=== PATIENT | female | born 1940 | race African-American/Black ===

== ENCOUNTER 2019-07-05 14:07 | Emergency (ER) | payer MEDICARE, SELFPAY ==
--- NOTE | ~2019-07-05 | XR_ITS ---
XR mandible min 4V 07/05/2019 15:03 Indication: Mandibular pain Procedure: 4 views mandible Comparison: No prior studies for comparison. Findings: No fracture, subluxation or dislocation. Temporomandibular joints are symmetric. Zygomatic arch is intact. There is moderate-severe cervical spondylosis. Impression: 1: No acute abnormality of the mandible. Reviewed, dictated and finalized at location A. R/[employer] Impression: 1: No acute abnormality of the mandible.
[2019-07-05 14:08] VITALS: BP 112/72; PULSE 66; RESP 18; TEMP 37; O2SAT 100
--- NOTE | 2019-07-05 14:42 | ED.GENADULT ---
HPI - General Adult General Chief complaint: Dental/Oral <REGGIE Nicolas Last Filed: 07/05/19 15:11> Stated complaint: dislocated jaw <REGGIE Nicolas Last Filed: 07/05/19 15:11> Time Seen by Provider: 07/05/19 14:29 <REGGIE Nicolas Last Filed: 07/05/19 15:11> Source: patient <REGGIE Nicolas Last Filed: 07/05/19 15:11> Mode of arrival: ambulatory <REGGIE Nicolas Last Filed: 07/05/19 15:11> Limitations: no limitations <REGGIE Nicolas Last Filed: 07/05/19 15:11> History of Present Illness HPI narrative: Patient is a 78-year-old female who presents to emergency department for possible jaw dislocation noting that she has been brushing her teeth and then developed some pain and deformity of the jaw had dental procedures with teeth extraction earlier in the month presents by EMS in no distress and on arrival is noting minimal discomfort or pain and denies any other URI symptoms or difficulty swallowing or breathing <REGGIE Nicolas Last Filed: 07/05/19 15:11> Related Data Home medications: Home Medications Medication Instructions Recorded Confirmed cetirizine 5 mg PO DAILY PRN 07/05/19 clopidogrel 75 mg PO DAILY 07/05/19 ibuprofen 600 mg PO Q6H PRN 07/05/19 lisinopril 10 mg PO DAILY 07/05/19 multivitamin [Daily-Suzy] 1 tablet PO DAILY 07/05/19 oxybutynin chloride 15 mg PO DAILY 07/05/19 simvastatin 20 mg PO HS 07/05/19 <REGGIE Nicolas Last Filed: 07/05/19 15:11> Allergies/adverse reactions: Allergies Allergy/AdvReac Type Severity Reaction Status Date / Time No Known Allergies Allergy Verified 07/05/19 14:11 <REGGIE Nicolas Last Filed: 07/05/19 15:11> Review of Systems Review of Systems: All systems reviewed & are unremarkable except as noted in HPI and below <REGGIE Nicolas Last Filed: 07/05/19 15:11> PMFSH Surgical History Surgical History: Surgical History H/O tooth extraction <Paul Cardona PA-C - Last Filed: 07/05/19 15:11> Social History Social History: Social History Gender identity (if verbalized by the patient): Female <Paul Cardona PA-C - Last Filed: 07/05/19 15:11> Exam Narrative: Exam Narrative: GENERAL: Well-appearing, well-nourished, and in no acute distress. HEAD: Normocephalic, atraumatic. Tenderness of the bilateral TMJ with mandible shifted to the right EYES: PERRLA and EOMI. ENT: Nares clear, no rhinorrhea or epistaxis. Mucous membranes moist. Oropharynx without tonsillar hypertrophy exudate or other lesions. Uvula midline no trismus or drooling NECK: Supple. No adenopathy or masses. CHEST: Clear to auscultation. No respiratory distress. No wheezes rales or rhonchi HEART: Regular rate and rhythm. No murmur heard. EXTREMITIES: Normal range of motion. No edema. SKIN: Warm, dry, no rash. NEURO: No focal deficits. Alert and oriented x3. PSYCH: Normal mood and affect. <Paul Cardona PA-C - Last Filed: 07/05/19 15:11> Course Vital Signs Vital signs: Vital Signs Temperature 98.6 F 07/05/19 14:08 Pulse Rate 66 07/05/19 14:08 Respiratory Rate 18 07/05/19 14:08 Blood Pressure 112/72 07/05/19 14:08 Pulse Oximetry 100 07/05/19 14:08 Temperature 98.6 F 07/05/19 14:08 Pulse Rate 66 07/05/19 14:08 Respiratory Rate 18 07/05/19 14:08 Blood Pressure 112/72 07/05/19 14:08 Pulse Oximetry 100 07/05/19 14:08 <Paul Cardona PA-C - Last Filed: 07/05/19 15:11> Vital Signs Temperature 98.6 F 07/05/19 14:08 Pulse Rate 66 07/05/19 14:08 Respiratory Rate 18 07/05/19 14:08 Blood Pressure 112/72 07/05/19 14:08 Pulse Oximetry 100 07/05/19 14:08 Temperature 98.6 F 07/05/19 14:08 Pulse Rate 66 07/05/19 14:08 Respiratory Rate
[2019-07-05 15:51] VITALS: BP 139/68; PULSE 68; RESP 16; O2SAT 100
== END 2019-07-05 16:01 | disposition home or self-care (01) ==
LOC: ANHED 15:41
PROVIDERS: Emergency Provider General Practice; PCP Family Medicine
DX: S03.01XA Dislocation of jaw, right side, initial encounter (principal); X50.9XXA Other and unspecified overexertion or strenuous movements or postures, initial encounter
CPT/HCPCS: 21480; 70110; 99285

== ENCOUNTER 2020-05-05 14:03 | Emergency (ER) | payer MEDICARE, SELFPAY ==
--- NOTE | ~2020-05-05 | US_ITS ---
EXAMINATION:US venous doppler LE RT INDICATION:Right leg pain TECHNIQUE: Multiple grayscale, color flow and Doppler images of the right lower extremity deep venous systems were obtained and reviewed. COMPARISON:No prior studies for comparison. FINDINGS: The common femoral, superficial femoral and popliteal veins demonstrate normal respiratory variation, augmentation and compressibility. Color flow is also seen within the posterior tibial, pe roneal, greater saphenous and profunda veins. IMPRESSION: 1: No lower extremity deep venous thrombosis. Reviewed, dictated and finalized at location A. ICE PHYSICIAN
--- NOTE | ~2020-05-05 | CT_ITS ---
EXAMINATION: CT abdomen pelvis wo con DATE: 05/05/2020 15:27 INDICATION: Abdomen pain TECHNIQUE: Computed tomography (CT) of the abdomen and pelvis was performed without intravenous contr ast. The dose-length product was 405.10 mGy-cm. Automated exposure control and iterative reconstructi on technique were employed. COMPARISON: CT dated 09/12/2017 FINDINGS: There is right lower lobe atelectasis. Heart size is normal. There is atherosclerosis of th e aorta and coronary arteries. No evidence for aneurysm. Status post cholecystectomy with expected prominence of the bile ducts. There are calcified granuloma s in the spleen. There is a 4.5 cm left renal cyst. There are nonobstructing left renal stones. Bowel pattern is nonobstructive. Moderate colonic fecal loading. No lymphadenopathy. Generalized osteopeni a. Chronic burst fractures of L2 and L4. Moderate lumbar spondylosis. IMPRESSION: 1. No acute abdominal abnormality. 2: Nonobstructing left nephrolithiasis. Reviewed, dictated and finalized at location A. BANDING OFF BEARER
[2020-05-05 14:24] VITALS: BP 167/84; PULSE 62; RESP 16; TEMP 36.1; O2SAT 94
--- NOTE | 2020-05-05 14:28 | ED.ABDPAIN ---
HPI - Abdominal Pain General Chief Complaint: Extremity Problem,Nontraumatic Stated Complaint: leg cramps Time Seen by Provider: 05/05/20 14:19 Source: patient and family Mode of arrival: ambulatory Limitations: no limitations History of Present Illness HPI narrative: Patient is a 79-year-old female who presents to emergency department for evaluation of right leg cramping for the last week that has been intermittent typically in the mornings upon getting up also notes some mild cramping in the abdomen that radiates down into the leg patient has left-sided upper and lower deficits from prior stroke. Patient on arrival in the room in no distress denying any pain. Patient denies injury or trauma or other complaints and does not appear uncomfortable or distressed upon arrival Related Data Home Medications Medication Instructions Recorded Confirmed clopidogrel 05/05/20 05/05/20 ibuprofen 05/05/20 lisinopril 05/05/20 mirabegron [Myrbetriq] mg PO 05/05/20 omeprazole 05/05/20 oxybutynin chloride mg PO 05/05/20 simvastatin mg 05/05/20 Allergies Allergy/AdvReac Type Severity Reaction Status Date / Time No Known Allergies Allergy Verified 05/05/20 14:41 Review of Systems Review of Systems: All systems reviewed & are unremarkable except as noted in HPI and below PMFSH Social History Social History Gender identity (if verbalized by the patient): Female Course Course Emergency Course: Patient in the room in no distress aware of case findings treatment plan diagnosis Gayle catheter will be left in place for retention treated for urinary tract infection discharged back to the alf with primary care and urology follow-up has been hydrated and given antibiotics in the emergency department patient and family agree with this plan Consultations Consultation #1: Discussed case with primary care who will follow the patient in clinic or in the assisted living setting Date: 05/05/20 Time: 17:34 Vital Signs Vital signs: Vital Signs Temperature 97 F L 05/05/20 14:24 Pulse Rate 62 05/05/20 14:24 Respiratory Rate 16 05/05/20 14:24 Blood Pressure 167/84 H 05/05/20 14:24 Pulse Oximetry 94 05/05/20 14:24 Temperature 97 F L 05/05/20 14:24 Pulse Rate 74 05/05/20 16:16 Respiratory Rate 18 05/05/20 16:16 Blood Pressure 106/78 05/05/20 16:16 Pulse Oximetry 96 05/05/20 16:16 MDM - Abdominal Pain MDM Narrative Medical decision making narrative: Patient with UTI and urinary retention will be managed for these no other high risk changes in the blood work or imaging medicated in the emergency department prior to discharge Lab Data Result diagrams: 05/05/20 15:08 05/05/20 15:08 Labs: Lab Results 05/05/20 05/05/20 05/05/20 Range/Units 15:08 15:08 15:17 WBC 6.1 (4.5-10.0) K/mm3 RBC 4.16 L (4.2-5.4) M/mm3 Hgb 12.4 (12.0-15.0) g/dL Hct 37.1 (37.0-47.0) % MCV 89.2 (80-100) fl MCH 29.8 (26-34) pg MCHC 33.4 (32-36) g/dl RDW 15.0 H (11.5-14.5) % Plt Count 187 (150-375) k/mm3 MPV 9.8 (7.4-10.4) fl Immature Gran % (Auto) 0.2 (0-0.5) % Neut % (Auto) 50.3 (45.5-73.1) % Lymph % (Auto) 35.7 (18.3-44.2) % [place] % (Auto) 11.7 H (2.6-8.5) % Eos % (Auto) 1.3 (0-4.4) % Baso % (Auto) 0.8 (0.2-1.2) % Lymph # (Auto) 2.17 (0.9-3.2) K/mm3 [place] # (Auto) 0.7 H (0.1-0.6) K/mm3 Eos # (Auto) 0.1 (0-0.3) K/mm3 Baso # (Auto) 0.1 (0.0-0.1) K/mm3 Abs Immat Gran (auto) 0.01 (0.00-0.031) K/mm3 Absolute Neuts (auto) 3.1 (1.3-6.7) K/mm3 Absolute Nucleated RBC 0.0 (0.0-0.012) K/mm3 Nucleated RBC % 0.0 (0.0-0.2) % Sodium 142 (137-145) mmol/L Potassium 4.2 (3.4-5.0) mmol/L Chloride 105 (98-107) mmol/L Carbon Dioxide 29 (22-30) mmol/L Anion Gap 8 (8-16) mmol/L BUN 17 (7-17) mg/dL Creatinine 0.80 (0.7-1.0) mg/dL Estim Creat Clear Calc 4
[2020-05-05 15:19] LABS: Basophils Absolute Auto 0.1 K/mm3 (0.0-0.1); Basophils Percent Auto 0.8 % (0.2-1.2); Eosinophils Absolute Auto 0.1 K/mm3 (0-0.3); Eosinophils Percent Auto 1.3 % (0-4.4); Hematocrit 37.1 % (37.0-47.0); Hemoglobin 12.4 g/dL (12.0-15.0); Immature Granulocyte Absolute 0.01 K/mm3 (0.00-0.031); Immature Granulocyte Percent A 0.2 % (0-0.5); Lymphocytes Absolute Auto 2.17 K/mm3 (0.9-3.2); Lymphocytes Percent Auto 35.7 % (18.3-44.2); Mean Corpuscular HGB Conc 33.4 g/dl (32-36); Mean Corpuscular Hemoglobin 29.8 pg (26-34); Mean Corpuscular Volume 89.2 fl (80-100); Mean Platelet Volume 9.8 fl (7.4-10.4); Monocytes Absolute Auto 0.7 K/mm3 (0.1-0.6); Monocytes Percent Auto 11.7 % (2.6-8.5); Neutrophils Absolute Auto 3.1 K/mm3 (1.3-6.7); Neutrophils Percent Auto 50.3 % (45.5-73.1); Platelet Count Result 187 k/mm3 (150-375); Red Blood Count 4.16 M/mm3 (4.2-5.4); White Blood Count 6.1 K/mm3 (4.5-10.0)
[2020-05-05 15:27] LABS: Add Urine Microscopic? YES; Appearance Urine Clear (Clear); Bacteria Urine 1+ /hpf; Bilirubin Urine Negative (Negative); Blood Urine 1+ (Negative); Color Urine Yellow (Yellow); Glucose Urine UA Negative (Negative); Ketones Urine Negative (Negative); Leukocyte Esterase Ur 1+ LEU/UL (Negative); Mucus Urine Rare /lpf; Nitrate Urine Negative (Negative); Protein Urine Negative (Negative); RBC Urine 0-2 /hpf (0-2); Squamous Epithelial Cell Urine Rare /hpf (Few); Urobilinogen Urine Negative mg/dL (<2.0); WBC Urine 21-30 /hpf
[2020-05-05 15:31] LABS: Alanine Aminotransferase 13 U/L (4-35); Albumin Level 3.9 g/dL (3.5-5.1); Alkaline Phosphatase 102 U/L (38-126); Anion Gap 8 mmol/L (8-16); Aspartate Amino Transferase 25 U/L (14-36); Bilirubin,Total 0.6 mg/dL (0.2-1.3); Blood Urea Nitrogen 17 mg/dL (7-17); Calcium 9.2 mg/dL (8.4-10.2); Carbon Dioxide 29 mmol/L (22-30); Chloride 105 mmol/L (98-107); Estimated CRCL calculation 42 ml/min; Estimated Glomerular Filt Rate > 60; Glucose 88 mg/dL (65-105); Magnesium 2.2 mg/dL (1.6-2.3); Potassium 4.2 mmol/L (3.4-5.0); Sodium 142 mmol/L (137-145)
[2020-05-05 16:16] VITALS: BP 106/78; PULSE 74; RESP 18; O2SAT 96
[2020-05-05] MEDS: SODIUM CHLORIDE 0.9% IV 500 ML 999 ML IV CONT (16:27)
[2020-05-05 17:58] VITALS: BP 189/74; PULSE 58; RESP 16; O2SAT 95
== END 2020-05-05 18:30 ==
PROVIDERS: Emergency Medicine Emergency Medical Services; Emergency Provider Emergency Medicine; PCP Family Medicine
DX: N39.0 Urinary tract infection, site not specified (principal); R33.9 Retention of urine, unspecified; I69.354 Hemiplegia and hemiparesis following cerebral infarction affecting left non-dominant side; N20.0 Calculus of kidney; M79.604 Pain in right leg
CPT/HCPCS: 36415; 51701; 74176; 80053; 81001; 83735; 85025; 87077; 87086; 87088; 93971; 96361; 96365; 99284; J0696; J7040

== ENCOUNTER 2020-06-01 11:34 | Emergency (ER) | payer MEDICARE, SELFPAY ==
[2020-06-01] VITALS (7 sets, daily range): BP systolic 114–144; BP diastolic 72–78; PULSE 83–94; RESP 14–25; TEMP 37.8; O2SAT 75–100
--- NOTE | ~2020-06-01 | XR_ITS ---
EXAMINATION: XR hip LT 2V w AP pelvis DATE: 06/01/2020 13:00 INDICATION: Left leg weakness post fall TECHNIQUE: Anteroposterior view of the pelvis and anteroposterior and cross-table lateral views of th e left hip were obtained. COMPARISON: 06/18/2016 FINDINGS: Alignment is normal. No fracture identified. Sensitivity for nondisplaced fracture is decreased by di ffuse osteopenia which affects primarily the lower sacrum which is also partially obscured by approxi mately 9 cm ball of stool at the rectum suspicious for constipation and fecal impaction. Bilateral hi p joint spaces are relatively preserved. Atherosclerotic calcification is along the arteries in the p kathe and proximal thighs. IMPRESSION: 1. No acute osseous abnormality. Reviewed, dictated and finalized at location A. TENER
--- NOTE | ~2020-06-01 | CT_ITS ---
EXAMINATION: CT brain wo con DATE: 06/01/2020 12:50 INDICATION: Left hemiparesis. TECHNIQUE: Computed tomography (CT) of the head was performed without intravenous contrast. The mA wa s adjusted according to patient size. Iterative reconstruction technique was employed. The dose-lengt h product was 605.33 mGy-cm. COMPARISON: Head CT 04/08/2019 FINDINGS: There are old infarcts in the left cerebellum. There is a large old infarct in the expected distribution of right middle cerebral artery involving right frontal, parietal, temporal, and occipi tam lobes, right insula, right basal ganglia, and right thalamus. There are scattered areas of low at tenuation in the cerebral white matter. There is no intracranial hemorrhage, acute infarction, or abn ormal intracranial mass lesion. There is ex vacuo dilatation of right lateral ventricle. The orbits a re normal. There is mild mucosal thickening in the ethmoid sinuses. The mastoid air cells are normal. There is cerumen in right external auditory canal. IMPRESSION: 1. Large old infarct in the expected distribution of right middle cerebral artery. 2. Old infarcts in left cerebellum. 3. Stable moderate nonspecific cerebral white matter disease, which likely represents chronic small v essel ischemic disease. Reviewed, dictated and finalized at location B. TES INSTRUCTOR IMPRESSION: 1. Large old infarct in the expected distribution of right middle cerebral constance ry. 2. Old infarcts in left cerebellum. 3. Stable moderate nonspecific cerebral white matter disease, which likely repr esents chronic small vessel ischemic disease.
--- NOTE | ~2020-06-01 | CT_ITS ---
EXAMINATION: CT cervical spine wo con DATE: 06/01/2020 12:50 INDICATION: Left hemiparesis. TECHNIQUE: Computed tomography (CT) of the cervical spine was performed without intravenous contrast. Automated exposure control and iterative reconstruction technique were employed. The dose-length pro duct was 137.71 mGy-cm. COMPARISON: CT cervical spine 06/18/2016 FINDINGS: There are coarse calcifications in the thyroid. There is 2 mm retrolisthesis of C3 and C4 a nd C4 on C5. Vertebral body heights are normal. There is severely decreased disc height at C3-C4, C4- C5, and C5-C6 and moderately decreased disc height at C6-C7 and C7-T1. The following disc levels are specifically discussed: C2-C3: There is mild bilateral uncovertebral joint osteoarthritis. There is severe right and mild lef t facet joint osteoarthritis. There is mild right neural foraminal stenosis. There is no central jerad l stenosis. C3-C4: There is severe bilateral uncovertebral joint osteoarthritis. There is mild bilateral facet oliverio int osteoarthritis. There is mild bilateral neural foraminal stenosis. There is mild central canal st enosis. C4-C5: There is severe bilateral uncovertebral joint osteoarthritis. There is mild right and moderate left facet joint osteoarthritis. There is mild bilateral neural foraminal stenosis. There is mild ce ntral canal stenosis. C5-C6: There is severe bilateral uncovertebral joint osteoarthritis. There is mild bilateral facet oliverio int osteoarthritis. There is mild bilateral neural foraminal stenosis. There is mild central canal st enosis. C6-C7: There is severe bilateral uncovertebral joint osteoarthritis. There is mild bilateral facet oliverio int osteoarthritis. There is mild bilateral neural foraminal stenosis. There is mild central canal st enosis. C7-T1: There is mild bilateral uncovertebral joint osteoarthritis. There is severe bilateral facet oliverio int osteoarthritis. There is mild bilateral neural foraminal stenosis. There is no central canal sten osis. IMPRESSION: 1. No fracture. 2. Severe cervical spondylosis. Reviewed, dictated and finalized at location B. TRING MAKER
--- NOTE | 2020-06-01 12:25 | ECG_ITS ---
Measurements Intervals [place] Rate: 81 P: 30 CT: 148 QRS: -7 QRSD: 82 T: 24 QT: 369 QTc: 430 Interpretive Statements SINUS RHYTHM LOW QRS VOLTAGE IN PRECORDIAL LEADS CANNOT RULE OUT SEPTAL INFARCT, AGE INDETERMINATE INFERIOR INFARCT, AGE INDETERMINATE BASELINE ARTIFACT- I, II ABNORMAL ECG Electronically Signed On 06-01-2020 13:53:15 BUSINESS DEVELOPMENT MANAGER by Yasmany Jewell D.O.
[2020-06-01 12:46] LABS: Basophils Percent Auto 0.5 % (0.2-1.2); Eosinophils Absolute Auto 0.1 K/mm3 (0-0.3); Eosinophils Percent Auto 1.3 % (0-4.4); Hematocrit 38.6 % (37.0-47.0); Hemoglobin 12.4 g/dL (12.0-15.0); Immature Granulocyte Absolute 0.01 K/mm3 (0.00-0.031); Immature Granulocyte Percent A 0.2 % (0-0.5); Lymphocytes Absolute Auto 1.45 K/mm3 (0.9-3.2); Lymphocytes Percent Auto 24.3 % (18.3-44.2); Mean Corpuscular HGB Conc 32.1 g/dl (32-36); Mean Corpuscular Hemoglobin 29.2 pg (26-34); Mean Platelet Volume 9.6 fl (7.4-10.4); Monocytes Absolute Auto 0.8 K/mm3 (0.1-0.6); Monocytes Percent Auto 13.1 % (2.6-8.5); Neutrophils Absolute Auto 3.6 K/mm3 (1.3-6.7); Neutrophils Percent Auto 60.6 % (45.5-73.1); Platelet Count Result 180 k/mm3 (150-375); Red Blood Count 4.24 M/mm3 (4.2-5.4); Red Cell Distribution Width 14.7 % (11.5-14.5)
--- NOTE | 2020-06-01 12:46 | ED.GENADULT ---
HPI - General Adult General Chief complaint: Extremity Injury, Lower Stated complaint: fall - leg injury Time Seen by Provider: 06/01/20 12:07 Source: patient History of Present Illness HPI narrative: Patient is a 79 y/o female complaining of severe left leg weakness since 2 days ago when she fell. She states that she has chronic left sided weakness at baseline due to previous stroke. However, she believes that her fall made her weakness worse. She does not feel much to left leg. She states that her feeling on left side is decreased due to previous stroke. Related Data Home Medications Medication Instructions Recorded Confirmed clopidogrel 05/05/20 05/05/20 ibuprofen 05/05/20 lisinopril 05/05/20 omeprazole 05/05/20 oxybutynin chloride mg PO 05/05/20 simvastatin mg 05/05/20 cetirizine 10 mg PO DAILY 06/01/20 docusate sodium [Colace] 100 mg PO BID PRN 06/01/20 multivitamin [Daily Vitamin] tablet 06/01/20 Allergies Allergy/AdvReac Type Severity Reaction Status Date / Time No Known Allergies Allergy Verified 06/01/20 12:34 Review of Systems Constitutional: Constitutional: Denies chills, Denies fever(s), Denies headache(s) and Reports weakness Eyes: Eyes: Denies blurry vision ENT: Denies headache(s) and Denies neck pain Cardiovascular: Cardiovascular: Denies chest pain and Denies dyspnea Respiratory: Respiratory: Denies cough and Denies dyspnea Gastrointestinal: Gastrointestinal: Denies abdominal pain, Denies diarrhea, Denies nausea and Denies vomiting Genitourinary: Genitourinary: Denies hematuria and Denies dysuria Musculoskeletal: Musculoskeletal: Denies back pain and Denies neck pain Neurologic: Denies headache(s) and Reports weakness [facility] Social History Social History Gender identity (if verbalized by the patient): Female Exam Const: General: no acute distress and well developed Orientation/consciousness: oriented to person, oriented to place, oriented to time and patient oriented x3 HENMT: Head: normocephalic Ears: external ears normal General nose exam: Normal external nose present Eyes: General: appearance normal, both eyes and all related structures Conjunctivae: conjunctivae normal Neck: Neck: normal visual inspection and full ROM Chest: Chest palpation & inspection: normal inspection of the chest and no tenderness Resp: Effort & Inspection: normal respiratory effort Auscultation: clear to auscultation bilaterally Cardio: Rate: regular rate Rhythm: regular rhythm GI: GI Palp: No abdominal tenderness and Yes Soft to palpation Skin: General skin exam: normal color and turgor normal Neuro: General: oriented to person, oriented to place, oriented to time and patient oriented x3 Cognition (Neuro): normal cognition Motor exam (neuro): Other motor observations present (left hemiparesis) Sensory Exam: Sensory deficit (Neuro) (decreased sensation on left side) Extrem: General: normal to inspection, full ROM and no pedal edema Left upper extremity: hand abnormal to inspection other (contracted) Psych: Appearance: grossly normal Mental Status: mental status grossly normal Affect: normal affect Course Reevaluation(s) Reevaluation #1: Discussed with patient about test results. Informed patient that increasing weakness is likely due to stroke recrudescence. New stroke is not completely rule out, but she is not a candidate for stroke treatment such as tPA or thrombectomy because symptoms started 2 days ago. Date: 06/01/20 Time: 14:40 Vital Signs Vital signs: Vital Signs Temperature 37.8 C H 06/01/20 11:32 Pulse Rate 94 06/01/20 11:32 Respiratory Rate 20 06/01/20 11:32 Blood Pressure 114/72 06/01/20 11:32 Pulse Oximetry 98 06/01/20 11:32 Temperature 37.8 C H 06/01/20 11:32 Pulse Rate 83 06/01/20 15:00 Respiratory Rate 18 06/01/20 15:00 Blood Pressure 140/72 06/01/20 15:00 Pulse Oximetry
[2020-06-01 12:56] LABS: Anion Gap 3 mmol/L (8-16); Blood Urea Nitrogen 17 mg/dL (7-17); Calcium 8.7 mg/dL (8.4-10.2); Carbon Dioxide 34 mmol/L (22-30); Chloride 103 mmol/L (98-107); Estimated CRCL calculation 37 ml/min; Estimated Glomerular Filt Rate > 60; Glucose 148 mg/dL (65-105); Potassium 3.9 mmol/L (3.4-5.0); Sodium 140 mmol/L (137-145)
[2020-06-01 13:47] LABS: Add Urine Microscopic? NO; Appearance Urine Clear (Clear); Bacteria Urine Trace /hpf; Bilirubin Urine Negative (Negative); Blood Urine Negative (Negative); Color Urine Yellow (Yellow); Glucose Urine UA Negative (Negative); Ketones Urine Negative (Negative); Leukocyte Esterase Ur Negative LEU/UL (Negative); Mucus Urine Rare /lpf; Nitrate Urine Negative (Negative); Protein Urine Negative (Negative); RBC Urine 0-2 /hpf (0-2); Specific Grav Ur 1.016 (1.001-1.035); Squamous Epithelial Cell Urine Rare /hpf (Few); Urobilinogen Urine Negative mg/dL (<2.0); WBC Urine 0-3 /hpf
--- NOTE | 2020-06-01 17:45 | PC.NURSE ---
STILL AWAITING EMS FOR TRANSPORT. PT AWARE OF DELAY.
--- NOTE | 2020-06-01 18:31 | PC.NURSE ---
called [facility] [address] eta [phone], updated 1645, eta 1745, updated 1815, eta [phone].
--- NOTE | 2020-06-01 19:10 | PC.NURSE ---
called [facility] for update ETA 1999
--- NOTE | 2020-06-01 19:15 | PC.NURSE ---
called [facility] to request transport. declined due to limited staff.
== END 2020-06-01 21:25 ==
PROVIDERS: Emergency Provider Emergency Medicine; PCP Family Medicine
DX: I69.954 Hemiplegia and hemiparesis following unspecified cerebrovascular disease affecting left non-dominant side (principal); W19.XXXA Unspecified fall, initial encounter
CPT/HCPCS: 36415; 51701; 70450; 72125; 73502; 80048; 81003; 85025; 93005; 99284

== ENCOUNTER 2020-07-25 12:48 | Observation (INO) | payer MEDICARE, SELFPAY ==
[2020-07-25] VITALS (11 sets, daily range): BP systolic 120–173; BP diastolic 59–95; PULSE 68–89; RESP 16–20; TEMP 36.6–37.6; O2SAT 93–100
--- NOTE | ~2020-07-25 | CT_ITS ---
EXAMINATION: CT lumbar spine wo con DATE: 07/25/2020 17:10 INDICATION: Low back pain TECHNIQUE: Computed tomography (CT) of the lumbar spine was performed without intravenous contrast. T he dose-length product was 532.99 mGy-cm. Automated exposure control and iterative reconstruction jackie hnique were employed. COMPARISON: CT dated 05/05/2020 FINDINGS: There is a chronic burst fracture of L2, unchanged with approximately 650-60% loss of verte bral body height centrally. There is interbody fusion at L5-S1. There is a chronic burst fracture of L4 with approximately 75% loss of vertebral body height centrally. Osteopenia. Moderate multilevel fa cet hypertrophy. Moderate atherosclerosis. There is mild multilevel facet hypertrophy. IMPRESSION: 1. Chronic burst fractures of L2 and L4 with progression of vertebral body height loss at L4 compared with prior study. 2: Moderate lumbar spondylosis. Reviewed, dictated and finalized at location A. IMPRESSION: 1. Chronic burst fractures of L2 and L4 with progression of vertebral body heig ht loss at L4 compared with prior study. 2: Moderate lumbar spondylosis.
--- NOTE | ~2020-07-25 | MR_ITS ---
EXAMINATION: MR lumbar spine wo/w con EXAM DATE: 07/26/2020 13:06 INDICATION: L2, L4 chronic burst fractures; urine retention . TECHNIQUE: Multi-sequential, multiplanar MR images of the lumbar spine were obtained without contrast . Sagittal T1, T2, T2 fat saturation images. Axial T2 weighted images. Axial T1 weighted sequence. Patient was then injected with 10 mL Multihance intravenous contrast and reimaged. Postcontrast axi al and sagittal T1-weighted fat saturation sequences were obtained. Correlation was made with CT 07/25. FINDINGS: There is diffusely heterogeneous bone marrow signal. There is chronic moderate anterior wed ging of the L2 vertebral body. L3-L5 vertebral bodies have bone marrow edema indicating acute or suba cute components to these compression fractures with mild loss of the L3 vertebral body heights, moder ate at L4, and mild at the L5 superior endplate. These vertebral bodies also demonstrate enhancement on the postcontrast images. There is no epidural abscess. Mild thoracolumbar levoscoliosis. The verte bral bodies are aligned in the AP dimension. The conus medullaris terminates at the L1/2 level and iniguez s normal signal intensity and morphology. Level by level evaluation: T12-L1: There is a minimal diffuse disc bulge. Facet arthropathy: Minimal. Neural foraminal stenosis: No stenosis. Central canal stenosis: No stenosis. L1-L2: There is a mild to moderate diffuse disc bulge. Facet arthropathy: Mild. Neural foraminal stenosis: Mild bilateral. Central canal stenosis: Mild. L2-L3: There is a mild diffuse disc bulge. Facet arthropathy: Mild to moderate. Neural foraminal stenosis: Mild to moderate bilateral. Central canal stenosis: Mild. L3-L4: There is a mild to moderate diffuse disc bulge. Facet arthropathy: Moderate. Neural foraminal stenosis: Mild to moderate bilateral. Central canal stenosis: Mild. L4-L5: There is a moderate diffuse disc bulge. Facet arthropathy: Moderate. Neural foraminal stenosis: Moderate bilateral, left greater than right. Central canal stenosis: Mild to moderate. L5-S1: This level is fused. Facet arthropathy: Mild. Neural foraminal stenosis: Mild bilateral. Central canal stenosis: No stenosis. IMPRESSION: 1. L2-L5 compression fractures with edema at the L3, L4 and L5 levels indicating acute or subacute c omponent to these. 2. L4-5 moderate spondylosis. Reviewed, dictated and finalized at location A. IMPRESSION: 1. L2-L5 compression fractures with edema at the L3, L4 and L5 levels indicati ng acute or subacute component to these. 2. L4-5 moderate spondylosis.
--- NOTE | ~2020-07-25 | XR_ITS ---
EXAMINATION: XR lumbar spine min 4V DATE: 07/25/2020 13:42 INDICATION: Low back pain. TECHNIQUE: 5 views of lumbar spine were obtained. COMPARISON: CT abdomen and pelvis 05/05/2020 FINDINGS: Bone alignment is normal. There is a chronic burst fracture of L2 with 3/5 loss of height c entrally and retropulsion of bone 3 mm into central spinal canal. There is a chronic burst fracture o f L4 with 3/5 loss of height centrally. There is interbody fusion at L5-S1. Intervertebral disc heigh ts are normal. Osteopenia is noted. There is multilevel mild to moderate facet joint osteoarthritis. There is a large volume of stool in the colon. Surgical clips in the right upper quadrant are likely from cholecystectomy. IMPRESSION: 1. Moderate lumbar spondylosis. Reviewed, dictated and finalized at location A.
[2020-07-25 13:30] LABS: Amorphous Sediment Urine Few; Bacteria Urine Trace /hpf; Mucus Urine Rare /lpf; RBC Urine 0-2 /hpf (0-2); WBC Urine 21-30 /hpf
[2020-07-25 13:33] LABS: Appearance Urine Clear (Clear); Color Urine Light Yellow (Yellow)
[2020-07-25 13:33] LABS: Basophils Absolute Auto 0.1 K/mm3 (0.0-0.1); Basophils Percent Auto 0.7 % (0.2-1.2); Eosinophils Absolute Auto 0.1 K/mm3 (0-0.3); Eosinophils Percent Auto 0.7 % (0-4.4); Hematocrit 35.5 % (37.0-47.0); Hemoglobin 11.6 g/dL (12.0-15.0); Immature Granulocyte Absolute 0.02 K/mm3 (0.00-0.031); Immature Granulocyte Percent A 0.3 % (0-0.5); Lymphocytes Absolute Auto 1.59 K/mm3 (0.9-3.2); Lymphocytes Percent Auto 21.6 % (18.3-44.2); Mean Corpuscular HGB Conc 32.7 g/dl (32-36); Mean Corpuscular Volume 85.7 fl (80-100); Mean Platelet Volume 9.9 fl (7.4-10.4); Monocytes Absolute Auto 0.8 K/mm3 (0.1-0.6); Monocytes Percent Auto 11.4 % (2.6-8.5); Neutrophils Absolute Auto 4.8 K/mm3 (1.3-6.7); Neutrophils Percent Auto 65.3 % (45.5-73.1); Platelet Count Result 215 k/mm3 (150-375); Red Blood Count 4.14 M/mm3 (4.2-5.4); Red Cell Distribution Width 14.7 % (11.5-14.5); White Blood Count 7.4 K/mm3 (4.5-10.0)
[2020-07-25 13:38] LABS: pH Urine 5.5 (5.0-9.0)
[2020-07-25 13:39] LABS: Bilirubin Urine Negative (Negative); Blood Urine Negative (Negative); Glucose Urine UA Trace mg/dL (Negative); Leukocyte Esterase Ur 1+ LEU/UL (Negative); Nitrate Urine Negative (Negative); Protein Urine 1+ mg/dL (Negative); Specific Grav Ur 1.025 (1.001-1.035); Urobilinogen Urine 0.2 mg/dL (<2.0)
[2020-07-25 13:44] LABS: Add Urine Microscopic? YES
[2020-07-25 13:44] LABS: Anion Gap 2 mmol/L (8-16); Blood Urea Nitrogen 16 mg/dL (7-17); Carbon Dioxide 32 mmol/L (22-30); Chloride 105 mmol/L (98-107); Estimated CRCL calculation 47 ml/min; Estimated Glomerular Filt Rate > 60; Glucose 103 mg/dL (65-105); Potassium 3.6 mmol/L (3.4-5.0); Sodium 139 mmol/L (137-145)
[2020-07-25] MEDS: MORPHINE SULFATE (*CRX) 4 MG/ML INJ IV PUSH (15:00)
--- NOTE | 2020-07-25 15:23 | ED.ABDPAIN ---
HPI - Abdominal Pain General Chief Complaint: Urogenital-Female Stated Complaint: urinary retention Time Seen by Provider: 07/25/20 12:56 Source: patient Mode of arrival: EMS Limitations: no limitations History of Present Illness HPI narrative: 79-year-old with a history of CVA left-sided hemiplegia here with complaints of unable to urinate for last 7 to 8 hours. She also complains of left back pain. No history of recent falls. Denies any fever or chills, nausea or vomiting. Patient states that she had similar problem several years ago. MD elicited complaint: other (Back pain) Pertinent past history: none Onset (ago): hour(s) (8) Pain Consistency: constant Severity: moderate Quality: aching Radiation: none Exacerbating factors: nothing Relieving factors: nothing Related Data Home Medications Medication Instructions Recorded Confirmed cetirizine 5 mg PO DAILY PRN 07/05/19 clopidogrel 75 mg PO DAILY 07/05/19 ibuprofen 600 mg PO Q6H PRN 07/05/19 lisinopril 10 mg PO DAILY 07/05/19 multivitamin [Daily-Suzy] 1 tablet PO DAILY 07/05/19 oxybutynin chloride 15 mg PO DAILY 07/05/19 simvastatin 20 mg PO HS 07/05/19 Allergies Allergy/AdvReac Type Severity Reaction Status Date / Time No Known Allergies Allergy Verified 07/25/20 15:12 Review of Systems Review of Systems: All systems reviewed & are unremarkable except as noted in HPI and below Constitutional: Constitutional: Reports no additional constitutional complaints Eyes: Eyes: Reports no additional eye complaints ENT: Reports system reviewed and no additional complaints, except as documented Cardiovascular: Cardiovascular: Reports no additional cardiovascular complaints Respiratory: Respiratory: Reports no additional respiratory complaints Gastrointestinal: Gastrointestinal: Reports no additional gastrointestinal complaints Genitourinary: Genitourinary: Reports as per HPI Musculoskeletal: Musculoskeletal: Reports as per HPI Neurologic: Reports system reviewed and no additional complaints, except as documented PMFSH Surgical History Surgical History H/O tooth extraction Family History Family History Other Diabetes mellitus Family history of malignant neoplasm of breast Social History Social History Smoking status: Former smoker Alcohol intake: never Gender identity (if verbalized by the patient): Female Exam Narrative: Exam Narrative: GENERAL: Well-appearing,thin and in no acute distress. HEAD: Normocephalic, atraumatic. EYES: PERRLA and EOMI. NECK: Supple. CHEST: Clear to auscultation. No respiratory distress. HEART: Regular rate and rhythm. No murmur heard. Normal peripheral pulses. ABDOMEN: Soft, nontender, nondistended . EXTREMITIES: Normal range of motion. No edema. Hemiplegic on the left as foot brace SKIN: Warm, dry, no rash. NEURO: Alert and oriented x3. PSYCH: Normal mood and affect. Course Course Emergency Course: Bladder scan showed about 320 mL of urine placed a Gayle catheter and urine was sent for analysis which showed WBC but no significant nitrate however we will start her on IV antibiotic and keep the Gayle in place I recommended take antibiotic as prescribed and follow-up with the urologist in the next few days. I did discuss lab values with the patient and her daughter was at the bedside. Vital Signs Vital signs: Vital Signs Temperature 37.6 C 07/25/20 12:49 Pulse Rate 83 07/25/20 12:49 Respiratory Rate 20 07/25/20 12:49 Blood Pressure 173/80 H 07/25/20 12:49 Pulse Oximetry 100 07/25/20 12:49 Temperature 36.7 C 07/25/20 15:01 Pulse Rate 70 07/25/20 15:01 Respiratory Rate 19 07/25/20 15:01 Blood Pressure 127/89 07/25/20 15:01 Pulse Oximetry 99 07/25/20 15:01 MDM - Abdominal Pain Lab Data Result di
--- NOTE | 2020-07-25 16:35 | PC.NURSE ---
Attempted to help patient into a seated position so that we could assist her to get dressed. Patient was unable to move to a seated position with assistance x3 due to reports of severe pain with movement and to her lower back. Patient was assisted back into a supine position with pillow under head for comfort. Dr. Coleman was notified and orders obtained.
[2020-07-25] MEDS: LORazepam INJ (*CRX) 2 MG/ML VIAL 0.5 MG IV PUSH (16:49)
--- NOTE | 2020-07-25 18:14 | PC.NURSE ---
Patient's sister: Sissy Fisher .
[2020-07-25] MEDS: SODIUM CHLORIDE 0.9% IV 1,000 ML 75 ML IV CONT (20:24)
--- NOTE | 2020-07-25 21:04 | PM.IMHP ---
H&P: HPI History of Present Illness Date/Time: 07/25/20 21:04 Chief Complaint: urinary retention Narrative: Patient presents to the ed with back pain and having severe spasms. She was unable to urinate for the past 7-8 hrs per reprot. Bladder scan showed 320 ml urine. Barros was placed for acute urinary retention. She was aplnned for discharge for fu with urology as op basis but the pateint was not able to ambulate because of the pain and spasms. Because of the spasms, she was given ativan in the ED and hence while evluation the history was limited as she was groggy. She does report that she has back pain and thats why she came to the ED. she denies any fever, chills, sob, chest pain,a bdominal pain ,nasuea, vomitng. Review of Systems Review of Systems: ROS unobtainable: Yes unobtainable due to mental status PMFSH Surgical History Surgical History H/O tooth extraction Family History Family History Other Diabetes mellitus Family history of malignant neoplasm of breast Social History Social History Smoking status: Former smoker Tobacco type: cigarettes Alcohol intake: never Substance use: never Gender identity (if verbalized by the patient): Female Spiritual care concerns: No Meds Home Medications and Allergies Home Medications Medication Instructions Recorded Confirmed Type cetirizine 10 mg PO DAILY PRN 07/05/19 07/25/20 History clopidogrel 75 mg PO DAILY 07/05/19 07/25/20 History lisinopril 10 mg PO DAILY 07/05/19 07/25/20 History multivitamin [Daily-Suzy] 1 tablet PO DAILY 07/05/19 07/25/20 History oxybutynin chloride 15 mg PO HS 07/05/19 07/25/20 History simvastatin 20 mg PO HS 07/05/19 07/25/20 History docusate sodium [DOK] 100 mg PO BID PRN 07/25/20 07/25/20 History ibuprofen 800 mg PO QID PRN 07/25/20 07/25/20 History omeprazole 20 mg PO DAILY 07/25/20 07/25/20 History Allergies Allergy/AdvReac Type Severity Reaction Status Date / Time No Known Allergies Allergy Verified 07/25/20 15:12 Vital Signs Vital Signs - 24 hr 07/25/20 12:49 07/25/20 14:02 07/25/20 15:01 Temperature 99.6 F 98.9 F 98.0 F Pulse Rate 83 76 70 Respiratory Rate 20 18 19 Blood Pressure 173/80 H 122/76 127/89 Pulse Oximetry 100 93 99 07/25/20 16:02 07/25/20 16:55 07/25/20 18:00 Temperature 97.8 F 97.8 F 97.9 F Pulse Rate 79 89 74 Respiratory Rate 18 16 18 Blood Pressure 134/63 141/69 H 127/71 Pulse Oximetry 97 98 97 07/25/20 19:02 07/25/20 19:44 Temperature 98.0 F 98.4 F Pulse Rate 69 68 Respiratory Rate 18 18 Blood Pressure 121/59 L 121/59 L Pulse Oximetry 98 97 Exam Narrative: Exam Narrative: Exam Narrative: GENERAL: Well-appearing,thin and groggy due to medication but still answering questions HEAD: Normocephalic, atraumatic. EYES: PERRLA and EOMI. NECK: Supple. non tender. no lymphadenopathy CHEST: Clear to auscultation. No respiratory distress. HEART: Regular rate and rhythm. No murmur heard. Normal peripheral pulses. ABDOMEN: Soft, nontender, nondistended . EXTREMITIES: Normal range of motion. No edema. Hemiplegic on the left as foot brace SKIN: Warm, dry, no rash. NEURO: somnolent, mnoving all her extremities H&P: Results Labs Labs: Short CBC 07/25/20 Range/Units 13:25 WBC 7.4 (4.5-10.0) K/mm3 Hgb 11.6 L (12.0-15.0) g/dL Hct 35.5 L (37.0-47.0) % Plt Count 215 (150-375) k/mm3 BMP 07/25/20 13:25 Sodium 139 Potassium 3.6 Chloride 105 Carbon Dioxide 32 H BUN 16 Creatinine 0.70 Glucose 103 Calcium 9.0 Urine 07/25/20 Range/Units 13:11 Urine Color Light yellow (Yellow) Urine Appearance Clear (Clear) Urine pH 5.5 (5.0-9.0) Ur Specific [place] 1.025 (1.001-1.035) Urine Protein 1+ H (Negative) mg/dL Urine Glucose (UA) Trace H (Negative) mg/dL A
[2020-07-25] MEDS: SIMVASTATIN 20 MG TABLET PO (22:34)
[2020-07-26 05:43] LABS: Basophils Absolute Auto 0.1 K/mm3 (0.0-0.1); Basophils Percent Auto 0.9 % (0.2-1.2); Eosinophils Absolute Auto 0.1 K/mm3 (0-0.3); Eosinophils Percent Auto 2.4 % (0-4.4); Hematocrit 28.9 % (37.0-47.0); Hemoglobin 9.5 g/dL (12.0-15.0); Immature Granulocyte Absolute 0.01 K/mm3 (0.00-0.031); Immature Granulocyte Percent A 0.2 % (0-0.5); Lymphocytes Absolute Auto 2.05 K/mm3 (0.9-3.2); Lymphocytes Percent Auto 35.3 % (18.3-44.2); Mean Corpuscular HGB Conc 32.9 g/dl (32-36); Mean Corpuscular Volume 85.3 fl (80-100); Mean Platelet Volume 9.8 fl (7.4-10.4); Monocytes Absolute Auto 0.8 K/mm3 (0.1-0.6); Monocytes Percent Auto 13.1 % (2.6-8.5); Neutrophils Absolute Auto 2.8 K/mm3 (1.3-6.7); Neutrophils Percent Auto 48.1 % (45.5-73.1); Platelet Count Result 180 k/mm3 (150-375); Red Blood Count 3.39 M/mm3 (4.2-5.4); Red Cell Distribution Width 14.7 % (11.5-14.5); White Blood Count 5.8 K/mm3 (4.5-10.0)
[2020-07-26 05:55] LABS: Anion Gap 2 mmol/L (8-16); Blood Urea Nitrogen 12 mg/dL (7-17); Carbon Dioxide 28 mmol/L (22-30); Chloride 107 mmol/L (98-107); Estimated CRCL calculation 53 ml/min; Estimated Glomerular Filt Rate > 60; Glucose 92 mg/dL (65-105); Potassium 3.4 mmol/L (3.4-5.0); Sodium 137 mmol/L (137-145)
[2020-07-26 06:00] VITALS: BP 132/55; PULSE 58; RESP 16; TEMP 36.5; O2SAT 97
[2020-07-26] MEDS: MULTIVITAMINS THERAPEUTIC TAB (*BKC) 1 TABLET PO (08:17)
[2020-07-26] MEDS: CLOPIDOGREL BISULFATE 75 MG TABLET PO (08:17)
[2020-07-26] MEDS: lisinopriL 10 MG TABLET PO (08:17)
[2020-07-26] MEDS: PANTOPRAZOLE 40 MG TABLET PO (08:17)
[2020-07-26] MEDS: ENOXAPARIN 40 MG/0.4 ML SYRINGE SUB-Q (08:17)
[2020-07-26 08:55] VITALS: O2SAT 92
[2020-07-26] MEDS: POTASSIUM CHLORIDE 20 MEQ TABLET PO (10:06)
[2020-07-26 11:30] LABS: Magnesium 1.8 mg/dL (1.6-2.3)
--- NOTE | 2020-07-26 11:33 | PM.IMPN ---
Progress Note: A&P Assessment and Plan (1) Urinary tract infection: Qualifiers: Hematuria presence: without hematuria Urinary tract infection type: acute cystitis Qualified Code(s): N30.00 - Acute cystitis without hematuria Code(s): N39.0 - Urinary tract infection, site not specified Status: Acute Assessment and Plan: UA with +WBC, +LE. Continue IV ceftriaxone (day 2) with urine culture pending. (2) Acute urinary retention: Code(s): R33.8 - Other retention of urine Status: Acute Assessment and Plan: Patient doesn't think she was having trouble urinating. Triage note explains Halley Sneed noted she hadn't urinated in 7-8 hrs yesterday, patient tells me this is because she slept all day yesterday. Bladder scan in ED showed 312mL and had 450mL output by straight cath. Continue IVF and treatment for UTI, voiding trial today. Hold oxybutinin, got a dose last night. (3) Acute exacerbation of chronic low back pain: Code(s): M54.5 - Low back pain; G89.29 - Other chronic pain Status: Acute Assessment and Plan: Patient reports chronic back pain but was having worsening back spasms last night that brought her to ER. CT lumbar spine shows chronic burst fractures of L2 and L4 with progression of vertebral body height loss at L4. Given her urinary retention, MRI L-spine ordered. She denies numbness/tingling to lower extremities, no saddle anesthesia however she describes not being able to feel her left leg for several years since old CVA. Continue conservative pain control with Tylenol, add low-dose Flexeril PRN for muscle spasms. No pain or spasms at present. (4) Closed burst fracture of lumbar vertebra: Qualifiers: Encounter type: subsequent encounter Fracture healing: with routine healing Qualified Code(s): S32.001D - Stable burst fracture of unspecified lumbar vertebra, subsequent encounter for fracture with routine healing Code(s): S32.001A - Stable burst fracture of unspecified lumbar vertebra, initial encounter for closed fracture Status: Acute Assessment and Plan: See above. Chronic. She has been wheelchair-bound for the last 1 year. (5) History of CVA (cerebrovascular accident): Code(s): Z86.73 - Personal history of transient ischemic attack (TIA), and cerebral infarction without residual deficits Status: Chronic Assessment and Plan: With chronic left-sided weakness, not able to use her left arm. Wheelchair-bound x 1 year. Lives at [facility] assisted living. Continue Plavix and statin therapy. (6) Hypertension: Qualifiers: Hypertension type: unspecified Qualified Code(s): I10 - Essential (primary) hypertension Code(s): I10 - Essential (primary) hypertension Status: Chronic Assessment and Plan: BPs reasonably stable, last 132/55 maintained on her home lisinopril. Monitor BP and adjust treatment as needed. Additional Plan COVID testing for discharge planning. PT/OT evals; dispo goal is back to assisted living. Subjective Date/time seen: 07/26/20 1100 Interval history: Ms. Benitez is a pleasant 79yo F admitted for acute on chronic back pain with back spasms and urinary retention. At present she tells me she is feeling well and denies having any back pain or back spasm at this time. She has been wheel-chair bound, not able to walk for 1 year. 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 She tells me she didn't know if she was really having trouble urinating but was sleeping all day yesterday and that's why she didn't urinate. She denies a
[2020-07-26] MEDS: ACETAMINOPHEN 325 MG TABLET 650 MG PO (12:59)
[2020-07-26] MEDS: SODIUM CHLORIDE 0.9% IV 1,000 ML 75 ML IV CONT ×2 (12:59→20:22)
[2020-07-26 14:00] VITALS: BP 145/65; PULSE 71; RESP 16; TEMP 37.2; O2SAT 98
[2020-07-26] MEDS: SIMVASTATIN 20 MG TABLET PO (20:21)
[2020-07-26] MEDS: DOCUSATE SODIUM 100 MG CAPSULE PO (20:23)
[2020-07-26 21:51] VITALS: BP 135/96; PULSE 68; RESP 18; TEMP 37.5; O2SAT 98
[2020-07-27 06:00] VITALS: BP 165/71; PULSE 74; RESP 18; TEMP 37.4; O2SAT 97
[2020-07-27 06:19] LABS: Basophils Absolute Auto 0.1 K/mm3 (0.0-0.1); Basophils Percent Auto 1.1 % (0.2-1.2); Eosinophils Absolute Auto 0.2 K/mm3 (0-0.3); Eosinophils Percent Auto 3.4 % (0-4.4); Hematocrit 31.3 % (37.0-47.0); Hemoglobin 10.5 g/dL (12.0-15.0); Lymphocytes Absolute Auto 1.62 K/mm3 (0.9-3.2); Lymphocytes Percent Auto 34.1 % (18.3-44.2); Mean Corpuscular HGB Conc 33.5 g/dl (32-36); Mean Corpuscular Hemoglobin 28.5 pg (26-34); Mean Corpuscular Volume 84.8 fl (80-100); Mean Platelet Volume 9.8 fl (7.4-10.4); Monocytes Absolute Auto 0.6 K/mm3 (0.1-0.6); Monocytes Percent Auto 13.1 % (2.6-8.5); Neutrophils Absolute Auto 2.3 K/mm3 (1.3-6.7); Neutrophils Percent Auto 48.3 % (45.5-73.1); Platelet Count Result 206 k/mm3 (150-375); Red Blood Count 3.69 M/mm3 (4.2-5.4); Red Cell Distribution Width 14.5 % (11.5-14.5); White Blood Count 4.8 K/mm3 (4.5-10.0)
[2020-07-27 06:36] LABS: Alanine Aminotransferase 15 U/L (4-35); Alkaline Phosphatase 113 U/L (38-126); Anion Gap 4 mmol/L (8-16); Aspartate Amino Transferase 25 U/L (14-36); Bilirubin,Total 0.4 mg/dL (0.2-1.3); Blood Urea Nitrogen 10 mg/dL (7-17); Calcium 8.2 mg/dL (8.4-10.2); Carbon Dioxide 27 mmol/L (22-30); Chloride 110 mmol/L (98-107); Estimated CRCL calculation 53 ml/min; Estimated Glomerular Filt Rate > 60; Glucose 97 mg/dL (65-105); Magnesium 1.8 mg/dL (1.6-2.3); Potassium 3.4 mmol/L (3.4-5.0); Sodium 141 mmol/L (137-145)
[2020-07-27] MEDS: lisinopriL 10 MG TABLET PO (08:36)
[2020-07-27] MEDS: CLOPIDOGREL BISULFATE 75 MG TABLET PO (08:36)
[2020-07-27] MEDS: ENOXAPARIN 40 MG/0.4 ML SYRINGE SUB-Q (08:36)
[2020-07-27] MEDS: PANTOPRAZOLE 40 MG TABLET PO (08:36)
[2020-07-27] MEDS: MULTIVITAMINS THERAPEUTIC TAB (*BKC) 1 TABLET PO (08:36)
[2020-07-27 08:47] VITALS: PULSE 72; RESP 16; O2SAT 95
[2020-07-27 14:00] VITALS: BP 142/65; PULSE 61; RESP 16; TEMP 36.6; O2SAT 96
--- NOTE | 2020-07-27 15:53 | PM.IMPN ---
Progress Note: A&P Assessment and Plan (1) Urinary tract infection: Qualifiers: Hematuria presence: without hematuria Urinary tract infection type: acute cystitis Qualified Code(s): N30.00 - Acute cystitis without hematuria Code(s): N39.0 - Urinary tract infection, site not specified Status: Acute Assessment and Plan: UA showing > 100,000 non-uropathogenic gram positive organisms -She had urinary retention on admission which can be seen in UTIs on occasion -Will complete short 5 days coarse of abx (2) Acute urinary retention: Code(s): R33.8 - Other retention of urine Status: Acute Assessment and Plan: Resolved. -Pt hadn't urinated at AL and was sent to the ED and the Bladder scan in ED showed 312mL and had 450mL output by straight cath. -oxybutynin held -back pain but no spinal cord compression on MRI, no cauda equina -patient is now urinating and is able to control her urges and has not had any retention (3) Compression fracture: Status: Acute Assessment and Plan: MRI shows compression fracture with edema at L3, L4, L5 with some edema which indicated acute component -Continue PT/OT -Will need SNF as she is a 2x assist (4) Acute exacerbation of chronic low back pain: Code(s): M54.5 - Low back pain; G89.29 - Other chronic pain Status: Acute Assessment and Plan: As above (5) Closed burst fracture of lumbar vertebra: Qualifiers: Encounter type: subsequent encounter Fracture healing: with routine healing Qualified Code(s): S32.001D - Stable burst fracture of unspecified lumbar vertebra, subsequent encounter for fracture with routine healing Code(s): S32.001A - Stable burst fracture of unspecified lumbar vertebra, initial encounter for closed fracture Status: Acute Assessment and Plan: Acute as mentioned above (6) History of CVA (cerebrovascular accident): Code(s): Z86.73 - Personal history of transient ischemic attack (TIA), and cerebral infarction without residual deficits Status: Chronic Assessment and Plan: With chronic left-sided weakness, not able to use her left arm. Lives at [facility] assisted living. -Continue Plavix and statin therapy. (7) Hypertension: Qualifiers: Hypertension type: unspecified Qualified Code(s): I10 - Essential (primary) hypertension Code(s): I10 - Essential (primary) hypertension Status: Chronic Assessment and Plan: Last bp 142/65 -Continue lisinopril - Monitor BP and adjust treatment as needed. Time Spent With Patient Time with patient: 25 - 35 minutes Subjective Date/time seen: 07/27/20 15:53 Interval history: Pt is a 79 y/o female here urinary tension and back pain. Patient was seen today and states she is feeling better. She feels about the same as yesterday and does not feel like she has any stronger. Her current pain is 7/10 at rest but is much more when she walks. She was still a significant assist today with physical therapy although she claims she would be fine at assisted living. She says she is able to hold her urine and urinate on the bedpan when needed and has no urinary incontinence unless they do not come in time . Pt denies nausea, vomiting, fevers, chills, constipation, diarrhea, chest pain, sob, or abdominal pain. Care coordination has spoken with the family and they are going to do SNF. Review of Systems Review of Systems: All systems reviewed & are unremarkable except as noted in HPI and below Exam Narrative: Exam Narrative: General: Well developed well nourished patient in NAD HEENT: normocephalic Neck: supple Neuro: Alert and oriented x4 CV:RRR Resp:CTA Abd: Soft, non distended. No pain to palpation. Positive bowel sounds Extremities: No swelling, erythema, or pain to palpation. Back: pain to palpation to the lumbar spine. No breakdown Obje
[2020-07-27 18:33] LABS: SARS-CoV-2 RNA PCR Negative
[2020-07-27] MEDS: SODIUM CHLORIDE 0.9% IV 1,000 ML 75 ML IV CONT (20:56)
[2020-07-27] MEDS: SIMVASTATIN 20 MG TABLET PO (20:56)
[2020-07-27 21:23] VITALS: BP 161/62; PULSE 66; RESP 16; TEMP 36.7; O2SAT 97
[2020-07-28 05:52] VITALS: BP 148/77; PULSE 68; RESP 16; TEMP 36.7; O2SAT 97
[2020-07-28] MEDS: PANTOPRAZOLE 40 MG TABLET PO (09:00)
[2020-07-28] MEDS: CLOPIDOGREL BISULFATE 75 MG TABLET PO (09:00)
[2020-07-28] MEDS: ENOXAPARIN 40 MG/0.4 ML SYRINGE SUB-Q (09:00)
[2020-07-28] MEDS: lisinopriL 10 MG TABLET PO (09:00)
[2020-07-28] MEDS: MULTIVITAMINS THERAPEUTIC TAB (*BKC) 1 TABLET PO (09:00)
[2020-07-28] MEDS: ACETAMINOPHEN 325 MG TABLET 650 MG PO (09:08)
[2020-07-28] MEDS: SODIUM CHLORIDE 0.9% IV 1,000 ML 75 ML IV CONT (10:48)
[2020-07-28] MEDS: POTASSIUM CHLORIDE 20 MEQ TABLET PO (12:31)
[2020-07-28 14:00] VITALS: BP 156/73; PULSE 67; RESP 18; TEMP 37.3; O2SAT 96
--- NOTE | 2020-07-28 14:13 | PM.IMPN ---
Progress Note: A&P Assessment and Plan (1) Urinary tract infection: Qualifiers: Hematuria presence: without hematuria Urinary tract infection type: acute cystitis Qualified Code(s): N30.00 - Acute cystitis without hematuria Code(s): N39.0 - Urinary tract infection, site not specified Status: Acute Assessment and Plan: UA showing > 100,000 non-uropathogenic gram positive organisms -She had urinary retention on admission which can be seen in UTIs on occasion -Continue IV ceftriaxone (day 4). (2) Acute urinary retention: Code(s): R33.8 - Other retention of urine Status: Acute Assessment and Plan: Resolved. -Pt hadn't urinated at AL and was sent to the ED and the Bladder scan in ED showed 312mL and had 450mL output by straight cath. -oxybutynin held -back pain but no spinal cord compression on MRI, no cauda equina -patient is now urinating and is able to control her urges and has not had any retention (3) Compression fracture: Status: Acute Assessment and Plan: MRI shows compression fracture with edema at L3, L4, L5 with some edema which indicated acute component -Continue PT/OT -Dispo is SNF, awaiting insurance authorization. (4) Acute exacerbation of chronic low back pain: Code(s): M54.5 - Low back pain; G89.29 - Other chronic pain Status: Acute Assessment and Plan: As above (5) Closed burst fracture of lumbar vertebra: Qualifiers: Encounter type: subsequent encounter Fracture healing: with routine healing Qualified Code(s): S32.001D - Stable burst fracture of unspecified lumbar vertebra, subsequent encounter for fracture with routine healing Code(s): S32.001A - Stable burst fracture of unspecified lumbar vertebra, initial encounter for closed fracture Status: Acute Assessment and Plan: Acute as mentioned above (6) History of CVA (cerebrovascular accident): Code(s): Z86.73 - Personal history of transient ischemic attack (TIA), and cerebral infarction without residual deficits Status: Chronic Assessment and Plan: With chronic left-sided weakness, not able to use her left arm. Lives at [facility] assisted living. -Continue Plavix and statin therapy. (7) Hypertension: Qualifiers: Hypertension type: unspecified Qualified Code(s): I10 - Essential (primary) hypertension Code(s): I10 - Essential (primary) hypertension Status: Chronic Assessment and Plan: Last bp 148/77 -Continue lisinopril - Monitor BP and adjust treatment as needed. Subjective Date/time seen: 07/28/20 1200 Interval history: Pt is a 79 y/o female here urinary tension and back pain. She is feeling better. She tells me she didn't sleep well last night but otherwise has no complaints. She tells me she has no back pain at present while resting in bed. Has not been having back spasms. Has been urinating without issues since Gayle has been removed. She says she is able to hold her urine and urinate on the bedpan when needed and has no urinary incontinence unless they do not come in time . Pt denies nausea, vomiting, fevers, chills, constipation, diarrhea, chest pain, sob, or abdominal pain. Review of Systems Review of Systems: All systems reviewed & are unremarkable except as noted in HPI and below Exam Narrative: Exam Narrative: General: Female resting comfortably supine in bed in no acute distress. HEENT: Normocephalic, EOMI, oral mucosa tacky. Cardiovascular: Rate and rhythm are regular. Respiratory: Lungs clear to auscultation bilaterally. Respirations even and non-labored. Toleratin
[2020-07-28] MEDS: SIMVASTATIN 20 MG TABLET PO (20:51)
[2020-07-28 20:54] VITALS: O2SAT 98
[2020-07-28 22:00] VITALS: BP 175/67; PULSE 57; RESP 20; TEMP 37.3; O2SAT 95
[2020-07-29] MEDS: SODIUM CHLORIDE 0.9% IV 1,000 ML 75 ML IV CONT (01:22)
[2020-07-29 06:00] VITALS: BP 160/74; PULSE 76; RESP 20; TEMP 37.2; O2SAT 98
[2020-07-29 06:18] LABS: Anion Gap 4 mmol/L (8-16); Blood Urea Nitrogen 9 mg/dL (7-17); Calcium 8.7 mg/dL (8.4-10.2); Carbon Dioxide 28 mmol/L (22-30); Chloride 109 mmol/L (98-107); Estimated CRCL calculation 53 ml/min; Estimated Glomerular Filt Rate > 60; Glucose 99 mg/dL (65-105); Potassium 3.6 mmol/L (3.4-5.0); Sodium 141 mmol/L (137-145)
[2020-07-29 06:25] LABS: Basophils Absolute Auto 0.1 K/mm3 (0.0-0.1); Eosinophils Absolute Auto 0.3 K/mm3 (0-0.3); Eosinophils Percent Auto 5.2 % (0-4.4); Hemoglobin 11.1 g/dL (12.0-15.0); Immature Granulocyte Absolute 0.01 K/mm3 (0.00-0.031); Immature Granulocyte Percent A 0.2 % (0-0.5); Lymphocytes Absolute Auto 2.06 K/mm3 (0.9-3.2); Lymphocytes Percent Auto 34.4 % (18.3-44.2); Mean Corpuscular HGB Conc 33.6 g/dl (32-36); Mean Corpuscular Volume 83.3 fl (80-100); Mean Platelet Volume 9.9 fl (7.4-10.4); Monocytes Absolute Auto 0.7 K/mm3 (0.1-0.6); Monocytes Percent Auto 11.9 % (2.6-8.5); Neutrophils Absolute Auto 2.8 K/mm3 (1.3-6.7); Neutrophils Percent Auto 47.3 % (45.5-73.1); Platelet Count Result 226 k/mm3 (150-375); Red Blood Count 3.96 M/mm3 (4.2-5.4); Red Cell Distribution Width 14.3 % (11.5-14.5)
--- NOTE | 2020-07-29 09:28 | PCPTNOTE ---
Patient refused treatment this session due to fatigue. Attempted to see patient at 9:26, however patient refused at this time. Patient states that she did not sleep well last night and needs to take a nap. Will attempt later as appropriate. Mariah Barnard, [employer] OPERATOR HELPER
[2020-07-29] MEDS: lisinopriL 10 MG TABLET PO (09:39)
[2020-07-29] MEDS: ENOXAPARIN 40 MG/0.4 ML SYRINGE SUB-Q (09:40)
[2020-07-29] MEDS: CLOPIDOGREL BISULFATE 75 MG TABLET PO (09:40)
[2020-07-29] MEDS: MULTIVITAMINS THERAPEUTIC TAB (*BKC) 1 TABLET PO (09:40)
[2020-07-29] MEDS: PANTOPRAZOLE 40 MG TABLET PO (09:41)
[2020-07-29 12:30] VITALS: BP 170/75
[2020-07-29] MEDS: hydrALAZINE HCL 20 MG/ML VIAL 10 MG IV PUSH (13:36)
[2020-07-29 14:00] VITALS: BP 141/52; PULSE 87; RESP 16; TEMP 36.9; O2SAT 99
--- NOTE | 2020-07-29 15:19 | PM.DS ---
DS: Admitting Diagnosis Admitting Diagnosis Admitting Diagnosis: back pain, urinary retention DS: Discharge Diagnosis Discharge Diagnosis (1) Urinary tract infection: Qualifiers: Hematuria presence: without hematuria Urinary tract infection type: acute cystitis Qualified Code(s): N30.00 - Acute cystitis without hematuria Code(s): N39.0 - Urinary tract infection, site not specified Status: Acute Assessment and Plan: UA showing >100,000 non-uropathogenic gram positive organisms -She had urinary retention on admission which can be seen in UTIs on occasion -she was given ceftriaxone during her stay and discharged on Macrobid -she bladder scanned before discharge again and it was less than 300 -I have asked the [place] [facility] to monitor her urine. She may need follow-up with urology she continues to retention (2) Acute urinary retention: Code(s): R33.8 - Other retention of urine Status: Acute Assessment and Plan: Resolved. -Pt hadn't urinated at AL and was sent to the ED and the Bladder scan in ED showed 312mL and had 450mL output by straight cath. -oxybutynin held -back pain but no spinal cord compression on MRI, no cauda equina -patient is now urinating and is able to control her urges and has not had any retention (3) Compression fracture: Status: Acute Assessment and Plan: MRI shows compression fracture with edema at L3, L4, L5 with some edema which indicated acute component -Continue PT/OT at [facility] (4) Acute exacerbation of chronic low back pain: Code(s): M54.5 - Low back pain; G89.29 - Other chronic pain Status: Acute Assessment and Plan: As above (5) Closed burst fracture of lumbar vertebra: Qualifiers: Encounter type: subsequent encounter Fracture healing: with routine healing Qualified Code(s): S32.001D - Stable burst fracture of unspecified lumbar vertebra, subsequent encounter for fracture with routine healing Code(s): S32.001A - Stable burst fracture of unspecified lumbar vertebra, initial encounter for closed fracture Status: Acute Assessment and Plan: Acute as mentioned above, follow up with ortho (6) History of CVA (cerebrovascular accident): Code(s): Z86.73 - Personal history of transient ischemic attack (TIA), and cerebral infarction without residual deficits Status: Chronic Assessment and Plan: With chronic left-sided weakness, not able to use her left arm. Lives at [facility] assisted living but going to SNF at d/c -Continue Plavix and statin therapy. (7) Hypertension: Qualifiers: Hypertension type: unspecified Qualified Code(s): I10 - Essential (primary) hypertension Code(s): I10 - Essential (primary) hypertension Status: Chronic Assessment and Plan: Last bp 141/52 -Continue lisinopril but at an increased dose -I have asked the [place] [facility] to monitor her blood pressures closely and adjust medications as necessary DS: Summary Hospital Course Hospital Course: Patient is a 79-year-old female who presented emergency room for inability to urinate for 8 hours with back pain. She denies any recent falls or trauma. Vitals in the ER were temperature 37.6? C, pulse 83, respiratory rate 20, blood pressure 173/80, pulse ox 100 on room air. Initial CBC showed abnormal hemoglobin at 11.6 and abnormal hematocrit 35.5. BMP was relatively normal with the exception of CO2 which was 32. UA suspicious for UTI. Lumbar spine x-ray showed moderate lumbar spondylosis. They straight cath her and got 400 cc of urine out and admitted her to the hospitalist service. She was started on antibiotics for possible UTI and underwent a voiding trial which she passed. She was able to void throughout her stay without issue. Her oxybutynin was discontinued. Spine MRI showed L2-L5 compression fractures with edema indicating acute or sub
[2020-07-29] MEDS: SIMVASTATIN 20 MG TABLET PO (20:31)
== END 2020-07-29 21:20 ==
LOC: ANHED 18:29 → ANH3MEDSUR 18:56
PROVIDERS: Physician Assistant; Admitting Provider Internal Medicine; Emergency Provider Family Medicine; PCP Family Medicine; Visit Provider Physician Assistant
DX: N30.00 Acute cystitis without hematuria (principal); M47.816 Spondylosis without myelopathy or radiculopathy, lumbar region; M48.56XA Collapsed vertebra, not elsewhere classified, lumbar region, initial encounter for fracture; I69.354 Hemiplegia and hemiparesis following cerebral infarction affecting left non-dominant side; G89.29 Other chronic pain; D64.9 Anemia, unspecified; I10 Essential (primary) hypertension; Z87.891 Personal history of nicotine dependence; Z79.02 Long term (current) use of antithrombotics/antiplatelets; Z20.822 Contact with and (suspected) exposure to COVID-19
CPT/HCPCS: 36415; 51701; 51702; 72110; 72131; 72158; 80048; 80053; 81001; 83735; 85025; 87086; 87088; 96361; 96365; 96372; 96375; 97110; 97161; 97165; 97530; 97535; 99285; A9270; A9577; C9803; G0378; J0360; J0696; J1650; J2060; J2270; J7030; U0003; U0005